=== PATIENT | male | born 1970 | race Caucasian/White ===

== ENCOUNTER → 2017-12-30 10:03 | Outpatient (CLI) | payer OTHER, SELFPAY ==
[2017-12-30 12:49] LABS: AST(SGOT) 44 U/L (15-37); Alanine Aminotransfer ALT/SGPT 90 U/L (16-61); Anion Gap 7 (5-15); BUN 24 mg/dL (7-18); BUN/Creat Ratio 26.7 RATIO (10-20); Calcium,Total 9.2 mg/dL (8.5-10.1); Chloride 108 mmol/L (98-107); Cholesterol 174 mg/dL (200); EST Glomerular Filtration Rate 97 mL/min (>60); Est Glom Filt Rate - Afr Amer 117 mL/min (>60); Glucose 107 mg/dL (74-106); High Density Lipoprotein 42 mg/dL; Sodium Level 139 mmol/L (136-145); T4 Total, Thyroxin 10.6 ug/dL (4.5-12.1); Thyroid Stim Hormone (TSH) 1.59 uIU/mL (0.358-3.74); Triglycerides 120 mg/dL; Very Low Density Lipoprotein 24 mg/dL (5-40)
== END ==
PROVIDERS: Family Provider Family Medicine; PCP Family Medicine; Visit Provider Family Medicine
DX: I10 Essential (primary) hypertension (principal); E78.5 Hyperlipidemia, unspecified; E03.9 Hypothyroidism, unspecified
CPT/HCPCS: 36415; 80048; 80061; 84436; 84443; 84450; 84460

== ENCOUNTER → 2018-06-30 12:22 | Outpatient (CLI) | payer OTHER, SELFPAY ==
[2018-06-30 14:02] LABS: Anion Gap 11 (5-15); BUN 23 mg/dL (7-18); BUN/Creat Ratio 27.6 RATIO (10-20); Calcium,Total 8.7 mg/dL (8.5-10.1); Chloride 103 mmol/L (98-107); Cholesterol 241 mg/dL (200); Creatinine, Serum 0.83 mg/dL (0.70-1.30); EST Glomerular Filtration Rate 105 mL/min (>60); Est Glom Filt Rate - Afr Amer 127 mL/min (>60); Glucose 93 mg/dL (74-106); High Density Lipoprotein 41 mg/dL; Potassium 3.9 mmol/L (3.5-5.1); Sodium Level 139 mmol/L (136-145); Triglycerides 164 mg/dL; Very Low Density Lipoprotein 33 mg/dL (5-40)
== END ==
PROVIDERS: Family Provider Family Medicine; PCP Family Medicine; Visit Provider Family Medicine
DX: I10 Essential (primary) hypertension (principal); E78.5 Hyperlipidemia, unspecified
CPT/HCPCS: 36415; 80048; 80061

== ENCOUNTER → 2019-02-23 | Outpatient (CLI) | payer OTHER, SELFPAY ==
[2019-02-23 17:49] LABS: Hemoglobin A1c 5.8 % (4.2-6.3)
[2019-02-23 18:03] LABS: AST(SGOT) 25 U/L (15-37); Alanine Aminotransfer ALT/SGPT 46 U/L (16-61); Anion Gap 10 (5-15); BUN 18 mg/dL (7-18); BUN/Creat Ratio 21.5 RATIO (10-20); Calcium,Total 8.9 mg/dL (8.5-10.1); Chloride 105 mmol/L (98-107); Cholesterol 153 mg/dL (200); Creatinine, Serum 0.84 mg/dL (0.70-1.30); EST Glomerular Filtration Rate 104 mL/min (>60); Est Glom Filt Rate - Afr Amer 126 mL/min (>60); Glucose 104 mg/dL (74-106); High Density Lipoprotein 41 mg/dL; PSA,Total - Annual Screen 0.58 ng/mL (0.00-4.00); Potassium 3.5 mmol/L (3.5-5.1); Sodium Level 140 mmol/L (136-145); T4 Total, Thyroxin 10.8 ug/dL (4.5-12.1); Triglycerides 165 mg/dL; Very Low Density Lipoprotein 33 mg/dL (5-40)
== END | disposition home or self-care (01) ==
LOC: MFPLAB 14:57
PROVIDERS: Family Provider Family Medicine; PCP Family Medicine; Visit Provider Family Medicine
DX: Z00.00 Encounter for general adult medical examination without abnormal findings (principal); I10 Essential (primary) hypertension; E78.5 Hyperlipidemia, unspecified; E03.9 Hypothyroidism, unspecified; R73.01 Impaired fasting glucose
CPT/HCPCS: 36415; 80048; 80061; 83036; 84153; 84436; 84443; 84450; 84460; G0103

== ENCOUNTER → 2019-03-18 | Outpatient (CLI) | payer OTHER, SELFPAY ==
--- NOTE | 2019-03-18 09:16 | STRESSREP ---
Stress Test Report Exercise myocardial perfusion stress test. 48-year-old man with a history of chest pain. Stress protocol: Resting EKG demonstrates normal sinus rhythm with a rate of 76 bpm resting blood pressures 118/[address] changes are noted. The patient exercised according to the regular Lloyd protocol for a total duration of 6 minutes. The maximum heart rate attained was 148 bpm which was 85% of maximum predicted heart rate and maximum workload was 8.5 metabolic equivalents. Resting blood pressure started in 18/70 8 mmHg with a peak blood pressure 154/90 mmHg. At rest and during exercise no significant EKG changes were noted suggest ischemia. The patient did experience chest burning at peak exercise with shortness of breath. The test was terminated due to this. Myocardial perfusion protocol. 14.8 mCi of technetium 99m sestamibi was injected at rest. The patient exercised according to regular Lloyd protocol for total duration of 6 minutes. At peak exercise 44.8 mCi of technetium 99m sestamibi was injected stress images were obtained stress and rest images were reconstructed in comparing the short axis vertical and horizontal long axis. Gated images were also obtained. Perfusion SPECT analysis: Perfusion SPECT analysis demonstrated normal uptake of tracer noted in all areas of the myocardium on the stress and rest images to a similar extent. No areas of reversibility and was just ischemia next Gated SPECT analysis: The gated ejection fraction is noted to be 69% Conclusion: Normal exercise myocardial perfusion stress test. Preserved ejection fraction.
== END | disposition home or self-care (01) ==
LOC: CVS 06:34
PROVIDERS: Family Provider Family Medicine; PCP Family Medicine; Referring Provider Family Medicine; Visit Provider Family Medicine
DX: R07.9 Chest pain, unspecified (principal)
CPT/HCPCS: 78452; 93017; A9500; A4216

== ENCOUNTER → 2019-07-09 | Outpatient (CLI) | payer OTHER, SELFPAY | END | disposition home or self-care (01) | LOC: SL 20:07 | PROVIDERS: Family Provider Family Medicine; PCP Family Medicine; Referring Provider Family Medicine; Visit Provider Family Medicine | DX: G47.33 Obstructive sleep apnea (adult) (pediatric) (principal) | CPT/HCPCS: 95810 ==

== ENCOUNTER → 2019-10-01 19:58 | Outpatient (CLI) | payer OTHER, SELFPAY | PROVIDERS: Family Provider Family Medicine; PCP Family Medicine; Referring Provider Internal Medicine Pulmonary Disease; Visit Provider Internal Medicine Pulmonary Disease | DX: G47.33 Obstructive sleep apnea (adult) (pediatric) (principal) | CPT/HCPCS: 95811 ==

== ENCOUNTER → 2019-11-13 | Outpatient (CLI) | payer OTHER, SELFPAY ==
[2019-11-13 18:02] LABS: Anion Gap 6 (5-15); BUN 19 mg/dL (7-18); BUN/Creat Ratio 22.3 RATIO (10-20); Calcium,Total 8.7 mg/dL (8.5-10.1); Chloride 103 mmol/L (98-107); Creatinine, Serum 0.85 mg/dL (0.70-1.30); EST Glomerular Filtration Rate 102 mL/min (>60); Est Glom Filt Rate - Afr Amer 123 mL/min (>60); Glucose 120 mg/dL (74-106); Potassium 3.8 mmol/L (3.5-5.1); Sodium Level 138 mmol/L (136-145)
[2019-11-14 07:33] LABS: Vitamin D,25 Hydroxy 37.6 ng/mL
== END | disposition home or self-care (01) ==
LOC: MFPLAB 16:33
PROVIDERS: PCP Family Medicine; Referring Provider Family Medicine; Visit Provider Family Medicine
DX: I10 Essential (primary) hypertension (principal); E55.9 Vitamin D deficiency, unspecified
CPT/HCPCS: 36415; 80048; 82306

== ENCOUNTER → 2020-08-15 12:10 | Outpatient (CLI) | payer OTHER, SELFPAY | PROVIDERS: PCP Family Medicine; Visit Provider Nurse Practitioner Family | DX: U07.1 COVID-19 (principal) | CPT/HCPCS: 87635; U0003 ==

== ENCOUNTER 2020-08-20 09:12 | Outpatient (CLI) | payer OTHER, SELFPAY ==
[2020-08-19 12:24] VITALS: BMI 38.6
[2020-08-20 09:23] VITALS: BP 147/81; PULSE 103; RESP 18; TEMP 36.3; O2SAT 97
[2020-08-20 09:30] VITALS: BMI 38.6
[2020-08-20 10:29] VITALS: BP 129/79; PULSE 90; RESP 18; TEMP 36.3; O2SAT 97
[2020-08-20 11:08] VITALS: BP 128/75; PULSE 89; RESP 18; TEMP 35.9; O2SAT 98
[2020-08-20 11:31] VITALS: BP 130/81; PULSE 84; RESP 18; TEMP 35.9; O2SAT 97
== END 2020-08-20 11:52 | disposition home or self-care (01) ==
PROVIDERS: PCP Family Medicine; Referring Provider Nurse Practitioner Acute Care; Visit Provider Nurse Practitioner Acute Care
DX: U07.1 COVID-19 (principal)
CPT/HCPCS: 96365; J7050; M0239; Q0239

== ENCOUNTER → 2020-10-03 08:52 | Outpatient (CLI) | payer OTHER, SELFPAY ==
[2020-09-14 08:56] VITALS: BMI 37.5
--- NOTE | 2020-10-03 08:56 | ECHOCS_ITS ---
Reason For Study: Dyspnea/SOB Procedure This was a 2D Doppler, Color Flow transthoracic echocardiogram. The study was technically difficult. Contrast injection was performed. Exam performed in department. Left Ventricle Normal LV size. Moderate concentric left ventricular hypertrophy. Left ventricular systolic function is normal. The estimated ejection fraction is 60 %. Stage 2 diastolic dysfunction. No regional wall motion abnormalities noted. Right Ventricle Normal RV size. Normal systolic function. Atria Normal left atrium. Normal right atrium. Mitral Valve The mitral valve is structurally normal. No prolapse or stenosis seen. Tricuspid Valve Normal tricuspid valve. Unable to estimate RV systolic pressure due to inadequate jet, pulmonary artery pressure probably normal. Aortic Valve The aortic valve is not well visualized. Pulmonic Valve Normal pulmonic valve. Great Vessels Normal aortic root. The pulmonary artery is normal size. Normal inferior vena cava. Pericardium/Pleural No pericardial effusion. Medication 22 gauge I.V. with prn adaptor inserted into right arm. Diluted definity 3ml given slow IV push to enhance endocardial definition. MMode/2D Measurements & Calculations LVIDd: 4.7 cm IVSd: 1.6 cm Ao root diam: 3.3 cm LVIDs: 3.0 cm LVPWd: 1.5 cm FS: 35.6 % LAV(MOD-bp): 27.3 ml LA A4 area: 13.6 cm2 RA A4 area: 11.2 cm2 LAV(MOD-bp) Indexed: 11.0 ml/m2 LAV(MOD-sp2): 24.1 ml LAV(MOD-sp4): 29.7 ml Doppler Measurements & Calculations MV E max ugo: 69.6 cm/sec Lat Peak E' Ugo: 6.5 cm/sec Med Peak E' Ugo: 6.8 cm/sec MV A max ugo: 59.6 cm/sec E/E' lat: 10.8 E/E' med: 10.2 MV E/A: 1.2 MV V2 max: 84.8 cm/sec MV P1/2t max ugo: 77.2 cm/sec Ao V2 max: 111.7 cm/sec MV max P.9 mmHg MV P1/2t: 58.6 msec Ao max P.0 mmHg MV V2 mean: 41.4 cm/sec MV dec slope: 385.6 cm/sec2 MV mean P.83 mmHg MVA(P1/2t): 3.8 cm2 MV V2 VTI: 21.6 cm LV V1 max: 99.1 cm/sec PA V2 max: 126.2 cm/sec LV V1 max P.9 mmHg Interpretation Summary Normal LV size. Moderate concentric left ventricular hypertrophy. Left ventricular systolic function is normal. The estimated ejection fraction is 60 %. Stage 2 diastolic dysfunction. Contrast injection was performed. Ordering Physician: Lloyd Rivers Referring Physician: Shannan De La Cruz M.D. Performed By: Ross Gonzalez RCS
--- NOTE | 2020-10-03 15:22 | PFTCOMP_ITS ---
COMPLETE PULMONARY FUNCTION TEST INTERPRETATION Brief HPI: Patient is a 49 year old male, currently under the care of myself, who presents to [facility] for complete pulmonary function tests secondary to diagnosis of dyspnea. Respiratory therapist reports good effort and reproducible results. Interpretation: Forced expiration spirometry shows a mild large airways obstructive ventilatory defect with an FEV1 of 88% predicted. There is a significant bronchodilator response FEV1 by strict ATS criteria. Spirograms are of good quality and plateau slowly, indicating slowly emptying areas of the lungs. The respiratory flow volume loop shows decreased expiratory flow rates at high lung volumes consistent with small airways obstruction. Lung volumes by body plethysmography show a decreased total lung capacity at 6.14 L, 81% predicted. All other lung volumes are reduced symmetrically. Diffusion capacity by carbon monoxide is normal at 88% predicted. The airway resistance is normal. Compared to previous pulmonary function tests from 07/13/2019, there is been a significant improvement in FVC, FEV1 and DLCO by 16%, 33% and 73% respectively. Impression: Partially reversible mild mixed ventilatory defect with preserved diffusion capacity and significant improvement compared to previous testing.
== END ==
PROVIDERS: PCP Family Medicine; Referring Provider Internal Medicine Critical Care Medicine; Visit Provider Internal Medicine Critical Care Medicine
DX: R06.02 Shortness of breath (principal); R06.00 Dyspnea, unspecified
CPT/HCPCS: 93306; 94060; 94726; 94729; Q9957; A4216; C8929

== ENCOUNTER 2020-10-05 10:25 | Emergency (ER) | payer OTHER, SELFPAY ==
[2020-09-14 08:56] VITALS: BMI 37.5
[2020-10-05 10:26] VITALS: BP 142/98; PULSE 105; RESP 21; TEMP 36.5; O2SAT 96
[2020-10-05 10:27] VITALS: BP 142/98; PULSE 103; RESP 21; TEMP 36.5; O2SAT 96; BMI 37.0
--- NOTE | 2020-10-05 10:40 | EKG12_ITS ---
Test Reason : CP Blood Pressure : / mmHG Vent. Rate : 103 BPM Atrial Rate : 103 BPM P-R Int : 138 ms QRS Dur : 098 ms QT Int : 350 ms P-R-T Axes : 043 -51 043 degrees QTc Int : 458 ms Sinus tachycardia Left anterior fascicular block Poor R- wave Progression Abnormal ECG Confirmed by CHHAYA DIAZ, SEA ([id number]), non linear editor MECCA VIDALES ([id number]) on 10/07/2020 11:00:21 AM Referred By: JOSHUA Confirmed By:SEA SHAVER MD
--- NOTE | 2020-10-05 10:41 | ED.VIS.GEN ---
History of Present Illness Chief Complaint: Chest Pain Informant: Patient Narrative: 49-year-old male presents for the evaluation of dyspnea and chest discomfort. Patient has been short of breath for years. He recently changed statement services representative to begin seeing Dr. Rivers. 2 days ago he had an echocardiogram and a pulmonary function testing. These results were reviewed. Today he woke and got out of bed around 08 100. He states that he felt about normal for him but not great. He went outside and began working with horses and felt he was more winded than what he felt he should be and had some chest discomfort. Because he had Covid in August he was worried that something might be going on with his heart and came to emergency. He notes in March 2019 he had a stress test that was normal. Patient has started BiPAP and notes increased and belching in the mornings as well as reflux symptoms. - Past Medical History (1) Hyperlipidemia Status: Chronic (2) Hypothyroid Status: Chronic (3) SHAYLEE (obstructive sleep apnea) Status: Chronic (4) Obesity Status: Chronic (5) Hypertension Status: Chronic Past Medical History - Allergies and Home Meds Allergies/Adverse Reactions: Allergies No Known Allergies Allergy (Verified 10/05/20 10:26) Primary Care Physician: Shannan De La Cruz MD [Primary Care Provider] - Surgical History: no surgical history Smoking Status: Former smoker Drugs: None Review of Systems General: Denies: Chills, Fever, Sweats Eyes: Denies: Visual changes - bilaterally, Diplopia ENT: Denies: Rhinorrhea, Sore throat Cardiovascular: Reports: Chest pain. Denies: Palpitations Respiratory: Reports: Dyspnea, Dyspnea on exertion. Denies: Cough Gastrointestinal: Denies: Abdominal pain, Nausea, Vomiting, Diarrhea, Melena, Hematochezia Genitourinary: Denies: Dysuria, Hematuria, Frequency Musculoskeletal: Denies: Back pain, Extremity Pain Skin: Denies: Rash, Wounds Neurological: Denies: Headache, Weakness, Numbness Physical Exam Vital Signs/Narrative: Vital Signs Temp Pulse Resp BP Pulse Ox 10/05/20 10:27 97.7 F L 103 H 21 H 142/98 H 96 10/05/20 10:26 97.7 F L 105 H 21 H 142/98 H 96 Inital Vital Signs reviewed: Yes General: Obese Head: Normocephalic, Atraumatic Eyes: Perrl, EOMI ENT: Moist mucous membranes, No rhinorrhea Neck: Supple, Nontender Cardiovascular: Regular rate, Regular rhythm, No murmurs Respiratory: No distress, CTA bilaterally, Chest nontender Abdomen: Soft, Nontender, Nondistended, Normal bowel sounds Back: Nontender, Normal Inspection Extremities: Nontender, No edema Skin: Normal color, No rash Neurological: Alert, Oriented x3, Cranial nerves II-XII grossly intact, Normal Strength, Normal Sensation Psychological: Normal affect, Normal Mood Diagnostic/Tx/Re-eval Clinical Impression(s) from Imaging Studies Chest X-Ray 10/05/20 10:42 IMPRESSION: Normal x-ray examination of the chest. Electronically Signed: Christian Baca MD at 10:59 EST , Service support , Laboratory Last Values WBC 7.1 K/mm3 (4.4-11.0) 10/05/20 10:29 RBC 5.15 M/mm3 (4.6-6.2) 10/05/20 10:29 Hgb 15.5 g/dL (13.0-16.5) 10/05/20 10:29 Hct 44.1 % (40-54) 10/05/20 10:29 MCV 85.6 fL (80-94) 10/05/20 10:29 MCH 30.1 pg (27.0-32.0) 10/05/20 10:29 MCHC 35.1 g/dL (32-36) 10/05/20 10:29 RDW Std Deviation 38.5 fl (35.1-43.9) 10/05/20 10:29 RDW Coeff of Abhi 12.3 % (11.6-14.6) 10/05/20 10:29 Plt Count 201 K/mm3 (150-450) 10/05/20 10:29 MPV 12.2 fl (6.2-12.0) H 10/05/20 10:29 Immature Gran % (Auto) 0.600 % (0.0-0.9) 10/05/20 10:29 Neut % (Auto) 69.8 % (47-70) 10/05/20 10:29 Lymph % (Auto) 19.7 % (19-41) 10/05/20 10:29 [place] % (Auto) 6.5 % (0-10) 10/05/20 10:29 Eos % (Auto) 2.8 % (0-5) 10/05/20 10:29 Baso % (Auto) 0.6 % (0-1) 10/05/20 10:29 Absolute Neuts (auto) 5.0 X10^3/uL (2.0-7.7) 10/05/20 10:29 Absolute Lymphs (auto) 1.40 X10^3/uL (0.83-4.51) 10/05/20 10:29 Nucleated RBC % 0 % (0-5) 10/05/20 10:29 Sodium 134 mmol/L (136-145) L 10/05/20 10:29 Potassium 4.3 mmol/L (3.5-5.1) 10/05/20 10:29 Chloride 104 mmol/L (98-107) 10/05/20 10:29 Carbon Dioxide 24.0 mmol/L (21.0-32.0) 10/05/20 10:29 Anion Gap 6 (5-15) 10/05/20 10:29 BUN 24 mg/dL (7-18) H 10/05/20 10:29 Creatinine 1.04 mg/dL (0.70-1.30) 10/05/20 10:29 Estim Creat Clear Calc 98.17 ml/min 10/05/20 10:29 Est GFR (MDRD) Af Amer 98 mL/min (>60) 10/05/20 10:29 Est GFR (MDRD) Non-Af 81 mL/min (>60) 10/05/20 10:29 BUN/Creatinine Ratio 23.1 RATIO (10-20) H 10/05/20 10:29 Glucose 212 mg/dL (74-106) H 10/05/20 10:29 Calcium 8.9 mg/dL (8.5-10.1) 10/05/20 10:29 Troponin I < 0.015 ng/mL (<0.045) 10/05/20 10:29 - EKG Initial EKG Interpretation: Sinus Tachycardia - EKG demonstrating a sinus tachycardia at a rate of 103 left anterior fascicular block noted. - Medical Decision Making Patient was placed on the monitors had no events. EKG is a is a sinus tachycardia. His heart rate has come down into the 90s. He states is very normal for him to have heart rates around 100. Troponin negative. Chest x-ray negative. This could certainly be some esophagitis with his increase in reflux symptoms. He states he is hesitant to take an antacid because his thyroid medication. I suggested that perhaps he should ask his pharmacist if there is one that he could certainly do a 2-week trial of that would not interfere with his medicines. At this point I think the patient can be discharged home. ED Disposition - Plan for ED Patient: Disposition: Home or Assisted Living Diagnosis: Chest pain Instructions: ED Chest Pain, Uncertain Cause Referrals: Shannan De La Cruz MD [Primary Care Provider] - Keep Gloria appointment
--- NOTE | 2020-10-05 10:42 | RAD_ITS ---
STUDY: X-RAY CHEST REASON FOR EXAM: Male, 49 years old. C/O CHEST PAIN THAT STARTED TWO DAYS AGO. PT REPORTS HAVING COVID IN AUGUST -- HX OF HTN AND ASTHMA TECHNIQUE: Single AP portable view of the chest. COMPARISON: Comparison is made with prior examination dated 03/15/2014. FINDINGS: EKG electrodes are seen. The lungs are clear and expanded. There is no demonstrated pleural abnormality. Normal size heart. Normal mediastinum and geri. Normal visualized pulmonary arteries. Normal visualized aortic arch and descending thoracic aorta. Normal visualized thoracic spine. Normal visualized ribs, clavicles, and shoulders. There is no demonstrated abnormality of the visualized soft tissue structures of the upper abdomen. RAD/Chest 1 View (Portable) IMPRESSION: Normal x-ray examination of the chest. Electronically Signed: Christian Baca MD at 10:59 EST , Service support ,
[2020-10-05 10:48] LABS: Basophil# 0.04 X10^3/uL; Basophil% 0.6 % (0-1); Eosinophils% 2.8 % (0-5); Hematocrit 44.1 % (40-54); Hemoglobin 15.5 g/dL (13.0-16.5); Lymphocyte % 19.7 % (19-41); Mean Corp Hgb Conc 35.1 g/dL (32-36); Mean Corpuscular Hgb 30.1 pg (27.0-32.0); Mean Corpuscular Volume 85.6 fL (80-94); Mean Platelet Vol. 12.2 fl (6.2-12.0); Monocyte# 0.46 X10^3/uL; Monocyte% 6.5 % (0-10); NRBC Flagged by Analyzer 0 % (0-5); Neutrophil # 4.95 X10^3/uL (2.7-7.7); Neutrophil % 69.8 % (47-70); Platelet Count 201 K/mm3 (150-450); RBC Distribution Width CV 12.3 % (11.6-14.6); RBC Distribution Width SD 38.5 fl (35.1-43.9); Red Blood Count 5.15 M/mm3 (4.6-6.2); White Blood Count 7.1 K/mm3 (4.4-11.0)
[2020-10-05 11:04] LABS: Anion Gap 6 (5-15); BUN 24 mg/dL (7-18); BUN/Creat Ratio 23.1 RATIO (10-20); Calcium,Total 8.9 mg/dL (8.5-10.1); Chloride 104 mmol/L (98-107); Creatinine, Serum 1.04 mg/dL (0.70-1.30); EST Glomerular Filtration Rate 81 mL/min (>60); Est Glom Filt Rate - Afr Amer 98 mL/min (>60); Estimated Creatinine Clearance 98.17 ml/min; Glucose 212 mg/dL (74-106); Potassium 4.3 mmol/L (3.5-5.1); Sodium Level 134 mmol/L (136-145)
[2020-10-05 11:47] VITALS: BP 135/83; PULSE 90; RESP 20; O2SAT 94
== END 2020-10-05 11:51 | disposition home or self-care (01) ==
PROVIDERS: Emergency Provider Emergency Medicine; PCP Family Medicine
DX: R07.9 Chest pain, unspecified (principal); I10 Essential (primary) hypertension; E66.9 Obesity, unspecified; E78.5 Hyperlipidemia, unspecified; E03.9 Hypothyroidism, unspecified; Z79.899 Other long term (current) drug therapy; Z87.891 Personal history of nicotine dependence
CPT/HCPCS: 71045; 80048; 84484; 85025; 93005; 99285; A4216

== ENCOUNTER → 2020-10-12 10:06 | Outpatient (CLI) | payer OTHER, SELFPAY ==
[2020-10-05 10:27] VITALS: BMI 37.0
[2020-10-12 13:09] LABS: AST(SGOT) 41 U/L (15-37); Alanine Aminotransfer ALT/SGPT 90 U/L (16-61); Anion Gap 7 (5-15); BUN 21 mg/dL (7-18); BUN/Creat Ratio 25.1 RATIO (10-20); Calcium,Total 9.2 mg/dL (8.5-10.1); Chloride 101 mmol/L (98-107); Cholesterol 150 mg/dL (200); Creatinine, Serum 0.84 mg/dL (0.70-1.30); EST Glomerular Filtration Rate 104 mL/min (>60); Est Glom Filt Rate - Afr Amer 126 mL/min (>60); Glucose 123 mg/dL (74-106); High Density Lipoprotein 45 mg/dL; Potassium 4.1 mmol/L (3.5-5.1); Sodium Level 136 mmol/L (136-145); T4 Total, Thyroxin 10.8 ug/dL (4.5-12.1); Thyroid Stim Hormone (TSH) 2.13 uIU/mL (0.358-3.74); Triglycerides 109 mg/dL; Very Low Density Lipoprotein 22 mg/dL (5-40)
== END ==
PROVIDERS: PCP Family Medicine; Referring Provider Family Medicine; Visit Provider Family Medicine
DX: I10 Essential (primary) hypertension (principal); E03.9 Hypothyroidism, unspecified; E78.5 Hyperlipidemia, unspecified
CPT/HCPCS: 36415; 80048; 80061; 84436; 84443; 84450; 84460

== ENCOUNTER → 2021-05-23 15:30 | Outpatient (CLI) | payer OTHER, SELFPAY ==
[2021-05-23 18:33] LABS: Anion Gap 7 (5-15); BUN 28 mg/dL (7-18); BUN/Creat Ratio 33.7 RATIO (10-20); Calcium,Total 8.7 mg/dL (8.5-10.1); Chloride 105 mmol/L (98-107); Cholesterol 161 mg/dL (200); Creatinine, Serum 0.83 mg/dL (0.70-1.30); EST Glomerular Filtration Rate 104 mL/min (>60); Est Glom Filt Rate - Afr Amer 126 mL/min (>60); Glucose 94 mg/dL (74-106); High Density Lipoprotein 42 mg/dL; Potassium 3.6 mmol/L (3.5-5.1); Sodium Level 137 mmol/L (136-145); T4 Total, Thyroxin 10.6 ug/dL (4.5-12.1); Thyroid Stim Hormone (TSH) 1.71 uIU/mL (0.358-3.74); Triglycerides 97 mg/dL; Very Low Density Lipoprotein 19 mg/dL (5-40)
== END ==
PROVIDERS: PCP Family Medicine; Referring Provider Family Medicine; Visit Provider Family Medicine
DX: E03.9 Hypothyroidism, unspecified (principal); I10 Essential (primary) hypertension
CPT/HCPCS: 36415; 80048; 80061; 84436; 84443

== ENCOUNTER → 2022-05-01 | Outpatient (CLI) | payer OTHER, SELFPAY ==
[2022-05-02 08:54] LABS: Hepatitis C Antibody Non-Reactive (Nonreactive)
== END | disposition home or self-care (01) ==
LOC: MFPLAB 14:40
PROVIDERS: PCP Family Medicine; Visit Provider Physician Assistant Medical
DX: L43.8 Other lichen planus (principal); L91.8 Other hypertrophic disorders of the skin
CPT/HCPCS: 36415; 86803

== ENCOUNTER → 2022-07-30 | Outpatient (CLI) | payer OTHER, SELFPAY ==
[2022-07-30 18:08] LABS: Anion Gap 11 (5-15); BUN 22 mg/dL (7-18); BUN/Creat Ratio 25.9 RATIO (10-20); Calcium,Total 9.5 mg/dL (8.5-10.1); Chloride 101 mmol/L (98-107); Cholesterol 182 mg/dL (200); Creatinine, Serum 0.85 mg/dL (0.70-1.30); EST Glomerular Filtration Rate 101 mL/min (>60); Est Glom Filt Rate - Afr Amer 122 mL/min (>60); Glucose 100 mg/dL (74-106); High Density Lipoprotein 49 mg/dL; PSA,Total - Annual Screen 0.71 ng/mL (0.00-4.00); Sodium Level 137 mmol/L (136-145); T4 Total, Thyroxin 11.3 ug/dL (4.5-12.1); Thyroid Stim Hormone (TSH) 2.56 uIU/mL (0.358-3.74); Triglycerides 98 mg/dL; Very Low Density Lipoprotein 20 mg/dL (5-40)
== END | disposition home or self-care (01) ==
LOC: MFPLAB 15:28
PROVIDERS: PCP Family Medicine; Visit Provider Family Medicine
DX: Z00.00 Encounter for general adult medical examination without abnormal findings (principal); I10 Essential (primary) hypertension; E03.9 Hypothyroidism, unspecified; Z12.5 Encounter for screening for malignant neoplasm of prostate
CPT/HCPCS: 36415; 80048; 80061; 84153; 84436; 84443; G0103

== ENCOUNTER 2023-04-30 14:25 | Day surgery (SDC) | payer OTHER, SELFPAY ==
[2023-04-30] VITALS (7 sets, daily range): BP systolic 74–117; BP diastolic 51–71; PULSE 70–78; RESP 16–17; TEMP 36.7–37.3; O2SAT 91–97; BMI 32.0
[2023-04-30] MEDS: Lactated Ringers 1,000 ML 15 ML IV (14:45)
--- NOTE | 2023-04-30 14:53 | HP.PCM_ITS ---
HPI - General General Date of Admission: 04/30/23 Date of Service: 04/30/23 Chief Complaint: Screening colonoscopy HPI Luz Elena LARKIN, is a 52 M who presents today for screening colonoscopy. He does not have any abdominal pain. Does not have any cramping. He is not any chest pain shortness of breath. He has past medical obstructive sleep apnea, hyperlipidemia, hypothyroidism, hypertension and mild obesity. His father has a history of colon polyps but no colon cancer. All other 16 review systems are negative except as per past mentioned HPI. [facility] Medical History Asthma Back pain BiPAP (biphasic positive airway pressure) dependence Gastric reflux High cholesterol History of echocardiogram History of stress test Hyperlipidemia Hypertension Hypothyroid Leg cramps Obesity Sleep apnea Smoker Thyroid disease Wears dentures Wears glasses Home Medications atorvastatin 20 mg tablet 20 mg PO DAILY 08/19/20 [History Last Taken Unknown] cholecalciferol (vitamin D3) 125 mcg (5,000 unit) capsule 125 mcg PO DAILY 08/19/20 [History Last Taken Unknown] levothyroxine 75 mcg tablet (Synthroid) 75 mcg PO DAILY 08/19/20 [History Last Taken Unknown] lisinopril 20 mg-hydrochlorothiazide 25 mg tablet 1 tab PO DAILY 08/19/20 [History Last Taken Unknown] metaxalone 400 mg tablet 200 mg PO DAILY PRN Pain 1-10 Or Fever 08/19/20 [History Last Taken Unknown] potassium chloride 10 mEq capsule,extended release 10 meq PO DAILY 08/19/20 [History Last Taken Unknown] fluticasone propionate 50 mcg/actuation nasal spray,suspension 2 spray intranasal DAILY #18.2 mL 01/19/21 [Rx Last Taken Unknown] coenzyme Q10 100 mg capsule 100 mg PO DAILY 02/26/23 [History Last Taken Unknown] ibuprofen 200 mg tablet 800 mg PO BID PRN pain 02/26/23 [History Last Taken Unknown] magnesium oxide 500 mg tablet 500 mg PO DAILY 02/26/23 [History Last Taken Unknown] fluticasone furoate 200 mcg-vilanterol 25 mcg/dose inhalation powder (Breo Ellipta) 1 inh inhalation DAILY #3 device 04/09/23 [Rx Last Taken Unknown] tiotropium bromide 1.25 mcg/actuation mist for inhalation (Spiriva Respimat) 2 puff inhalation DAILY #4 grams 04/09/23 [Rx Last Taken Unknown] albuterol sulfate 90 mcg/actuation aerosol inhaler 2 puff inhalation Q6H PRN shortness of breath or wheezing 04/26/23 [History Last Taken Unknown] Allergy/AdvReac Type Severity Reaction Status Date / Time No Known Allergies Allergy Verified 04/26/23 14:34 Family History Father Testicular cancer Colon polyps Sister Hypertension Myocardial infarction Diabetes Surgical History Hx of vasectomy No pertinent past surgical history Social History household members: spouse current occupational status: employed 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 Smoking Status: Former smoker quit date: 09/02/13 pack-years: 20 ROS Review of Systems ROS Unobtainable: other Constitutional Constitutional: Denies fatigue, fever(s), poor appetite, weight gain or weight loss ENT HEENT: Denies mouth lesions Cardiovascular Cardiovascular: Denies abdominal bloating, abdominal edema or abdominal pain Respiratory/Chest Respiratory/Chest: Denies change in mental status, change in phlegm color, chest congestion or chest tightness Gastrointestinal Gastrointestinal: Denies belching, bloating, change in bowel habits, change in stool character, chewing difficulty, coffee ground emesis, constipation, cramping, diarrhea, dyspepsia, dysphagia, early satiety, excessive flatus, fecal incontinence, heartburn, hematemesis, hematochezia, hemorrhoids, loose stools, melena, nausea, odynophagia, rectal bleeding, tenesmus, vomiting or weight changes Genitourinary Genitourinary: Denies abdominal discomfort, burning urination or itching Musculoskeletal Musculoskeletal: Reports as per HPI; Denies muscle weakness or myalgias Integumentary Integumentary: Denies jaundice Neurologic Neurologic: Denies lack of coordination or weakness Psychiatric Psychiatric: Denies confusion, depression, memory loss, mood swings, paranoia or suicidal ideation Endocrine Endocrinology: Denies systems reviewed and no addt'l complaints, except as documented Hematologic/Lymphatic Hematologic/Lymphatic: Denies anemia, easy bleeding, easy bruising or lymphadenopathy Allergic/Immunologic Allergic/Immunologic: Denies systems reviewed and no addt'l complaints, except as documented Vital Signs Vital Signs Vital Signs: 04/30/23 14:46 04/30/23 14:46 Temperature 99.1 F Temperature Source Temporal Pulse Rate 78 Respiratory Rate 17 Respiratory Pattern Normal Blood Pressure 117/71 Blood Pressure Mean 86 Blood Pressure Source Monitor Blood Pressure Position Semi-Fowlers Blood Pressure Location Left Arm Pulse Ox 97 Oxygen Delivery Method Room Air Weight Weight: 242 lb 8.136 oz Body Mass Index (BMI) 32.0 Physical Exam Const alert General Appearance: cooperative Orientation / Consciousness: oriented to person HEENT hearing grossly normal bilaterally Head and Scalp: normal to inspection Face and Sinus: face symmetric Nose: external nose normal Mouth: oral and palatal mucosa normal Eyes conjunctivae normal General Eye: normal appearance of both eyes Neck full ROM General: normal visual inspection Lymph Lymphatic: no lymphadenopathy noted Chest inspection of chest normal and palpation of chest normal Chest: symmetrical chest wall rise Resp normal respiratory effort Effort and Inspection: able to speak in complete sentences Cardio regular rate GI non-distended Percussion: normal to percussion Rectal Exam: deferred Neuro Speech: speech normal Gait (Neuro): normal gait Assessment & Plan Assessment/Plan (1) Encounter for screening for malignant neoplasm of colon: PLAN: He was explained alternatives, risk, benefits including not withstanding bleeding, infection, sepsis, perforation, need for emergent surgery . He will have an ASA of 2.
--- NOTE | 2023-04-30 15:30 | COLBX_PTH ---
PATIENT: SHARONA LARKIN Jr. LOC: EN U#:[id number] AGE/SX: 52/M ROOM: RE04/30/[address]: Dr. Tyler Peralta DO : 1970 BED: DIS: 04/30/2023 SPEC #: [id number] RECD: 04/30/23 17:11 STATUS: CASTRO REOrlin #: [id number] BON: 04/30/23 15:[address]: Tyler Peralta DEPT: SURGICAL PATHOLOGY RECD BY: Latha Kaur ENTERED: 05/01/23 10:55 SP TYPE: COLON BX OT DR: Dr. Shannan De La Cruz MD Tissues: A - Sigmoid colon biopsy B - Rectum, NOS Procedures: Surgery Specimen Level IV HEADER OPERATION: Colonoscopy - open access (MAC) with biopsy and polypectomy PRE-OP DIAGNOSIS: Screening TISSUE SUBMITTED: A - Sigmoid polyp biopsy, B - Rectum polyp MICROSCOPIC DIAGNOSIS A. Sigmoid polyp, biopsy: Tubular adenoma. B. Rectal polyp, polypectomy: Hyperplastic polyp. ROBERT:breanna 05/02/2023 MICROSCOPIC DESCRIPTION Slides are reviewed. GROSS DESCRIPTION A - Received in fixative is one container labeled with the patient's name and designated sigmoid polyp biopsy. The specimen consists of two irregular fragments of light mascorro soft tissue that in aggregate measure 0.8 x 0.4 x 0.1 cm. The specimen is totally submitted in one cassette. B - Received in fixative is one container labeled with the patient's name and designated rectum polyp. The specimen consists of a mascorro-pink polyp measuring 0.4 x 0.4 x 0.3 cm. The specimen is totally submitted in one cassette. / ROBERT:breanna 05/01/2023 TC:1 CPT: 41925 x2
--- NOTE | 2023-04-30 15:43 | OP.COLON_ITS ---
Patient Name: Jaspal Gupta Procedure Date: 04/30/2023 2:56 PM Date of : 1970 Age: 52 Procedure: Colonoscopy Indications: Screening for colorectal malignant neoplasm Providers: Tyler Peralta DO Medicines: Monitored Anesthesia Care Patient Profile: This is a 52 year old male. Refer to note in patient chart for documentation of history and physical. Last Colonoscopy: none. The patient's first colonoscopy is today. Complications: No immediate complications. Procedure: Pre-Anesthesia Assessment: - Prior to the procedure, a History and Physical was performed, and patient medications and allergies were reviewed. The patient is competent. The risks and benefits of the procedure and the sedation options and risks were discussed with the patient. All questions were answered and informed consent was obtained. Patient identification and proposed procedure were verified by the physician. Mental Status Examination: alert and oriented. Airway Examination: normal oropharyngeal airway and neck mobility. Respiratory Examination: clear to auscultation. CV Examination: normal. Prophylactic Antibiotics: The patient does not require prophylactic antibiotics. Prior Anticoagulants: The patient has taken no anticoagulant or antiplatelet agents. After reviewing the risks and benefits, the patient was deemed in satisfactory condition to undergo the procedure. The anesthesia plan was to use monitored anesthesia care (MAC). Immediately prior to administration of medications, the patient was re-assessed for adequacy to receive sedatives. The heart rate, respiratory rate, oxygen saturations, blood pressure, adequacy of pulmonary ventilation, and response to care were monitored throughout the procedure. The physical status of the patient was re-assessed after the procedure. After I obtained informed consent, the scope was passed under direct vision. Throughout the procedure, the patient's blood pressure, pulse, and oxygen saturations were monitored continuously. The Colonoscope was introduced through the anus and advanced to the terminal ileum. The colonoscopy was performed without difficulty. The patient tolerated the procedure well. The quality of the bowel preparation was good. The terminal ileum, ileocecal valve, appendiceal orifice, and rectum were photographed. Scope In: 3:11:58 PM Scope Withdrawal Time 0 hours 13 minutes 8 seconds Scope Out: 3:29:42 PM Total Procedure Duration Time 0 hours 17 minutes 44 seconds Findings: The perianal and digital rectal examinations were normal. A 5 mm polyp was found in the sigmoid colon. The polyp was sessile. The polyp was removed with a jumbo cold forceps. Resection and retrieval were complete. Verification of patient identification for the specimen was done. Estimated blood loss was minimal. A 9 mm polyp was found in the rectum. The polyp was sessile. The polyp was removed with a hot snare. Resection and retrieval were complete. Verification of patient identification for the specimen was done. Estimated blood loss was minimal. Multiple small-mouthed diverticula were found in the recto-sigmoid colon, sigmoid colon and descending colon. The exam was otherwise without abnormality on direct and retroflexion views. Impression: - One 5 mm polyp in the sigmoid colon, removed with a jumbo cold forceps. Resected and retrieved. - One 9 mm polyp in the rectum, removed with a hot snare. Resected and retrieved. - Diverticulosis in the recto-sigmoid colon, in the sigmoid colon and in the descending colon. - The examination was otherwise normal on direct and retroflexion views. Recommendation: - Discharge patient to home. - Resume previous diet. - Continue present medications. - Await pathology results. - Repeat colonoscopy in 5 years for surveillance. Procedure Code(s): --- Professional --- 67795, Colonoscopy, flexible; with removal of tumor(s), polyp(s), or other lesion(s) by snare technique 66149, 59, Colonoscopy, flexible; with biopsy, single or multiple CPT copyright 2021 [employer]. All rights reserved. The codes documented in this report are preliminary and upon powder truck driver review may be revised to meet current compliance requirements. Tyler Peralta DO 04/30/2023 3:42:54 PM This report has been signed electronically. Number of Addenda: 0 Note Initiated On: 04/30/2023 2:56 PM
--- NOTE | 2023-04-30 15:44 | OP.CCLET_ITS ---
04/30/2023 Shannan De La Cruz [address] [place] [address] Re : Colonoscopy procedure for Jaspal Gupta Dear Dr. De La Cruz This procedure was performed on Sunday, April 30, 2023. My impressions and recommendations are as follows: Impressions : - One 5 mm polyp in the sigmoid colon, removed with a jumbo cold forceps. Resected and retrieved. - One 9 mm polyp in the rectum, removed with a hot snare. Resected and retrieved. - Diverticulosis in the recto-sigmoid colon, in the sigmoid colon and in the descending colon. - The examination was otherwise normal on direct and retroflexion views. Recommendations : - Discharge patient to home. - Resume previous diet. - Continue present medications. - Await pathology results. - Repeat colonoscopy in 5 years for surveillance. My findings are described in the full procedure note, which is enclosed. If I can be of further assistance, please feel free to contact me at . Sincerely, Tyler Peralta DO 04/30/2023 3:42:54 PM This report has been signed electronically.
== END 2023-04-30 16:37 | disposition home or self-care (01) ==
LOC: EN 14:25 → AC 14:27
PROVIDERS: PCP Family Medicine; Referring Provider Family Medicine; Visit Provider Internal Medicine Gastroenterology
PROC: 0DJD8ZZ Inspection of Lower Intestinal Tract, Via Natural or Artificial Opening Endoscopic (ICD-10-PCS; CPT 45378; principal; 2023-04-30 15:25)
DX: Z12.11 Encounter for screening for malignant neoplasm of colon (principal); I50.32 Chronic diastolic (congestive) heart failure; I11.0 Hypertensive heart disease with heart failure; K57.30 Diverticulosis of large intestine without perforation or abscess without bleeding; K62.1 Rectal polyp; E78.00 Pure hypercholesterolemia, unspecified; Z87.891 Personal history of nicotine dependence; E66.9 Obesity, unspecified; Z68.33 Body mass index [BMI] 33.0-33.9, adult; D12.5 Benign neoplasm of sigmoid colon; Z79.899 Other long term (current) drug therapy; J45.909 Unspecified asthma, uncomplicated; K21.9 Gastro-esophageal reflux disease without esophagitis; E03.9 Hypothyroidism, unspecified
CPT/HCPCS: 45380; 45385; 88305; J7120; J2405

== ENCOUNTER → 2023-08-05 | Outpatient (CLI) | payer OTHER, SELFPAY ==
[2023-08-05 18:15] LABS: Microalbumin,Random Urine < 5.0 mg/L (NO RANGE EST.)
[2023-08-05 18:29] LABS: AST(SGOT) 22 U/L (15-37); Alanine Aminotransfer ALT/SGPT 47 U/L (16-61); Anion Gap 8 (5-15); BUN 20 mg/dL (7-18); BUN/Creat Ratio 24.8 RATIO (10-20); Calcium,Total 8.6 mg/dL (8.5-10.1); Chloride 103 mmol/L (98-107); Cholesterol 158 mg/dL (200); EST Glomerular Filtration Rate 107 mL/min (>60); Est Glom Filt Rate - Afr Amer 130 mL/min (>60); Glucose 88 mg/dL (74-106); High Density Lipoprotein 46 mg/dL; Potassium 3.7 mmol/L (3.5-5.1); Sodium Level 137 mmol/L (136-145); T4 Total, Thyroxin 9.5 ug/dL (4.5-12.1); Thyroid Stim Hormone (TSH) 2.97 uIU/mL (0.358-3.74); Triglycerides 173 mg/dL; Very Low Density Lipoprotein 35 mg/dL (5-40)
== END | disposition home or self-care (01) ==
LOC: MFPLAB 16:35
PROVIDERS: PCP Family Medicine; Visit Provider Family Medicine
DX: E78.5 Hyperlipidemia, unspecified (principal); I10 Essential (primary) hypertension; E03.9 Hypothyroidism, unspecified
CPT/HCPCS: 36415; 80048; 80061; 82043; 82570; 84436; 84443; 84450; 84460

== ENCOUNTER → 2024-10-28 | Outpatient (CLI) | payer OTHER, SELFPAY ==
--- NOTE | 2024-10-28 15:00 | CT_ITS ---
PROCEDURE: LOW DOSE CT LUNG SCREENING REASON FOR EXAM: Patient has smoked 1-1/2 packs of cigarettes per day for 40 years. TECHNIQUE: Low Dose CT Lung Screening without contrast COMPARISON: None. FINDINGS: PULMONARY NODULES: (Only nodules >6mm are reported) Nodules described below are on series 1 unless otherwise specified. Pulmonary Nodules: No concerning pulmonary nodules. Hardware:None Lymph Nodes:No mediastinal hilar or axillary lymphadenopathy. Heart and Vasculature:Normal heart size. No pericardial effusion.Thoracic aorta and pulmonary arteries have normal contours; noncontrast technique limits evaluation. Coronary Artery Calcifications: Present Lungs and Airways: Mild emphysematous changes are present. Pleura:No pleural effusion. No pneumothorax. Upper Abdomen:Visualized portions of the upper abdominal viscera are unremarkable. Bones:Degenerative changes of the thoracic spine. CT/Low Dose CT Lung Screening IMPRESSION: 1. BASED ON THE ACR LUNG RADS FOR THE MOST SUSPICIOUS NODULE (IF ANY) DESCRIBE D IN THIS REPORT, THE OVERALL LUNG RADS SCORE IS 2.2 - BENIGN (BASED ON IMAGING FEATURES OR INDOLENT BEHAVIOR). RECOMMEND 12-MON TH SCREENING LDCT.. 2. SMOKING CESSATION COUNSELING IS RECOMMENDED IF THE PATIENT IS STILL SMOKING . 3. OTHER SIGNIFICANT FINDINGSNone. One or more dose reduction techniques were used (e.g., Automated exposure contr ol, adjustment of the mA and/or kV according to patient size, use of iterative reconstruction technique). The following information is provided for reference:Lung-RADS 2021 Assessment C ategories. Additional information involving Lung-RADS is available at [email or web address]. 0-INCOMPLETE 1-NEGATIVE:No nodules or definitely benign nodules. Complete, central, popcorn , or centric ring calcifications OR fat containing 2-BENIGN APPEARANCE (based on imaging features or indolent behavior). Juxtaple ural nodule: < 10mm AND solid; smooth margins; oval, entiform, or triangular shape Solid nodule: <6mm at baseline or new< 4mm Part solid Nodule: < 6mm total mean diameter at baseline Nonsolid nodule:(GGN) < 30mm OR >=30mm stable or slowly growing Airway nodule, subsegmental at baseline, new, or stable Category 3 nodule stabl e or decreased in size at 6-month follow-up CT or Category 3 or 4A nodules that resolve on follow-up OR category 4B findings prov en to be benign following diagnotic work up. 3 - Probably Benign (Based on imaging features or behavior) Solid Nodule: >= 6 to <8mm at baseline OR new 4 to <6mm Part-solid nodule: >= 6mm toal mean diam. with solid component <6mm at baseline OR new < 6mm total mean diam. Non-solid nodule: GGN >= 30mm at baseline or new Atypical pulmonary cyst: Growing cystic component (mean diam.) of thick-walled cyst Category 4A nodule stable or decreased in size at 3-month follow-up CT (excl.ai rway). 4A - Suspicious Solid nodule: >=8 to < 15mm at baseline OR growing < 8mm OR new 6 to < 8mm Part solid nodule: >= 6mm total mean diam. w/ solid component >=6mm to < 8mm at baseline OR new or growing < 4mm solid component Airway nodule, segmental or more proximal at baseline or new Atypical pulmonary cyst: Thick-walled OR multilocular at baseline OR becomes mu ltilocular 4B - Very Suspicious Airway nodule, segmental or more proximal, and stable or growing Solid nodule: >= 15mm at baseline OR new or growing >= 8mm Part solid nodule: Solid component >= 8mm OR new or growing >= 4mm solid compon ent Atypical pulmonary cyst: Thick-walled with growing wall thickness/nodularity OR Growing multilocular (mean diam.) OR Multilocular with increased loculation or new/increased opacity Slow-growing solid or part solid nodule w/ growth over multiple screening exams 4X - Very Suspicious Category 3 or 4 nodules with additional features that increase the suspicion fo r lung cancer. S - Clinically Significant or potentially significant findings (non-lung cancer ) 3. OTHER SIGNIFICANT FINDINGSNone. One or more dose reduction techniques were used (e.g., Automated exposure contr ol, adjustment of the mA and/or kV according to patient size, use of iterative reconstruction technique). The following information is provided for reference:Lung-RADS 2022 Assessment C ategories. Additional information involving Lung-RADS is available at [email or web address]. 0-INCOMPLETE 1-NEGATIVE:No nodules or definitely benign nodules. Complete, central, popcorn , or centric ring calcifications OR fat containing 2-BENIGN APPEARANCE (based on imaging features or indolent behavior). Juxtaple ural nodule: < 10mm AND solid; smooth margins; oval, entiform, or triangular shape Solid nodule: <6mm at baseline or new< 4mm Part solid Nodule: < 6mm total mean diameter at baseline Nonsolid nodule:(GGN) < 30mm OR >=30mm stable or slowly growing Airway nodule, subsegmental at baseline, new, or stable Category 3 nodule stabl e or decreased in size at 6-month follow-up CT or Category 3 or 4A nodules that resolve on follow-up OR category 4B findings prov en to be benign following diagnotic work up. 3 - Probably Benign (Based on imaging features or behavior) Solid Nodule: >= 6 to <8mm at baseline OR new 4 to <6mm Part-solid nodule: >= 6mm toal mean diam. with solid component <6mm at baseline OR new < 6mm total mean diam. Non-solid nodule: GGN >= 30mm at baseline or new Atypical pulmonary cyst: Growing cystic component (mean diam.) of thick-walled cyst Category 4A nodule stable or decreased in size at 3-month follow-up CT (excl.ai rway). 4A - Suspicious Solid nodule: >=8 to < 15mm at baseline OR growing < 8mm OR new 6 to < 8mm Part solid nodule: >= 6mm total mean diam. w/ solid component >=6mm to < 8mm at baseline OR new or growing < 4mm solid component Airway nodule, segmental or more proximal at baseline or new Atypical pulmonary cyst: Thick-walled OR multilocular at baseline OR becomes mu ltilocular 4B - Very Suspicious Airway nodule, segmental or more proximal, and stable or growing Solid nodule: >= 15mm at baseline OR new or growing >= 8mm Part solid nodule: Solid component >= 8mm OR new or growing >= 4mm solid compon ent Atypical pulmonary cyst: Thick-walled with growing wall thickness/nodularity OR Growing multilocular (mean diam.) OR Multilocular with increased loculation or new/increased opacity Slow-growing solid or part solid nodule w/ growth over multiple screening exams 4X - Very Suspicious Category 3 or 4 nodules with additional features that increase the suspicion fo r lung cancer. S - Clinically Significant or potentially significant findings (non-lung cancer ) Reading Location: [id number]
== END | disposition home or self-care (01) ==
LOC: CT 14:51
PROVIDERS: PCP Family Medicine; Referring Provider Nurse Practitioner Acute Care; Visit Provider Nurse Practitioner Acute Care
DX: F17.210 Nicotine dependence, cigarettes, uncomplicated (principal)
CPT/HCPCS: 71271

== ENCOUNTER → 2024-12-11 | Outpatient (CLI) | payer OTHER, SELFPAY ==
[2024-12-11 12:53] LABS: Erythrocyte Sedimentation Rate 6 mm/hr (0-20)
[2024-12-11 14:11] LABS: Protein:Creat Ratio 109 mg/g CRE (0-200)
[2024-12-11 14:17] LABS: ALB/GLOB Ratio 1.5 RATIO (0.9-2.4); AST(SGOT) 25 U/L (<=37); Alanine Aminotransfer ALT/SGPT 31 U/L (<=46); Albumin, Serum 4.2 g/dL (3.5-5.0); Alkaline Phosphatase 92 U/L (40-129); Anion Gap 14 (5-15); BUN 19 mg/dL (4-19); BUN/Creat Ratio 23.9 RATIO (10-20); Calcium,Total 9.1 mg/dL (7.6-11.0); Carbon Dioxide 20.7 mmol/L (21.0-32.0); Chloride 101 mmol/L (98-108); Cholesterol 173 mg/dL (<=200); Creatinine, Serum 0.81 mg/dL (0.70-1.20); EST Glomerular Filtration Rate 106 (>60); Globulin 2.9 g/dL (2.2-4.2); Glucose 158 mg/dL (70-99); High Density Lipoprotein 43 mg/dL; Low Density Lipoprotein Calc. 104 mg/dL; PSA,Total - Annual Screen 0.85 ng/mL (0.02-4.00); Potassium 4.1 mmol/L (3.3-5.1); Protein, Total 7.1 g/dL (5.9-8.4); Sodium Level 136 mmol/L (133-145); T4 Total, Thyroxin 9.4 ug/dL (4.5-12.1); Total Bilirubin 0.37 mg/dL (0.00-1.30); Triglycerides 130 mg/dL; Very Low Density Lipoprotein 26 mg/dL (5-40); Vitamin B12 393 pg/mL (180-914); cholesterol:hdl ratio screen 4.01
== END | disposition home or self-care (01) ==
LOC: MFPLAB 09:57
PROVIDERS: PCP Family Medicine; Referring Provider Family Medicine; Visit Provider Family Medicine
DX: Z12.5 Encounter for screening for malignant neoplasm of prostate (principal); E66.01 Morbid (severe) obesity due to excess calories; R53.81 Other malaise; R53.83 Other fatigue; E03.9 Hypothyroidism, unspecified; I10 Essential (primary) hypertension; E78.5 Hyperlipidemia, unspecified
CPT/HCPCS: 36415; 80053; 80061; 82570; 82607; 83036; 83735; 84153; 84156; 84436; 84443; 85652; G0103